=== PATIENT | male | born 1965 | race Caucasian/White ===

== ENCOUNTER 2020-02-28 15:54 | Outpatient (REF) | payer OTHER, SELFPAY | END 2020-02-28 15:55 | disposition home or self-care (01) | LOC: HO.BBR 15:54 | PROVIDERS: Visit Provider Internal Medicine | DX: E83.110 Hereditary hemochromatosis (principal) | CPT/HCPCS: 99195 ==

== ENCOUNTER 2020-05-01 16:02 | Outpatient (REF) | payer OTHER, SELFPAY | END 2020-05-01 16:03 | disposition home or self-care (01) | LOC: HO.BBR 16:02 | PROVIDERS: Visit Provider Internal Medicine | DX: Z13.89 Encounter for screening for other disorder (principal) ==

== ENCOUNTER 2020-05-01 16:45 | Outpatient (REF) | payer SELFPAY ==
[2020-05-01 18:26] LABS: Cholesterol 187 mg/dL
[2020-05-02 08:15] LABS: SARS COV2 IgG Negative (Negative)
== END 2020-05-01 16:46 | disposition home or self-care (01) ==
LOC: HO.LNC 16:45
PROVIDERS: Visit Provider Pathology Anatomic Pathology & Clinical Pathology
DX: Z52.000 Unspecified donor, whole blood (principal); Z20.828 Contact with and (suspected) exposure to other viral communicable diseases
CPT/HCPCS: 82465; 86769

== ENCOUNTER 2020-07-02 13:36 | Emergency (ER) | payer OTHER, SELFPAY ==
--- NOTE | ~2020-07-02 | XR_ITS ---
EXAMINATION: XR CHEST CLINICAL INFORMATION: Dyspnea. Cough. COMPARISON: None TECHNIQUE: Frontal view of the chest was obtained. FINDINGS: The cardiac and mediastinal contours are normal. There is increased attenuation of the right lung base questionable for infiltrate. The left lung is clear. There is no pleural effusion or pneumothorax. Bony structures are unremarkable. XR/XR chest 1V IMPRESSION: Question small infiltrate at the right lung base.
--- NOTE | 2020-07-02 14:05 | ED.SOB ---
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 He is supposed to return to work tomorrow. He reports continuing to have coughing fits and difficulty catching his breath. He hasnt been using his CPAP because of coughing at night. He is bringing up white phlegm. He denies chest pain, abdominal pain, N/V/D. No fevers, no leg pain. MD elicited complaint: shortness of breath Onset (ago): week(s) (2) Context: anxiety Timing: intermittent Severity: moderate Exacerbating factors: exertion and coughing Relieving factors: rest and upright position Associated symptoms: pain with inspiration Treatment prior to arrival: none Related Data Home oxygen amount: none Previous Rx's Medication Instructions Recorded albuterol sulfate 1 inh INHALATION QID PRN #6.7 g 07/02/20 azithromycin [Zithromax Z-Conrad] See Rx Instructions .ROUTE 07/02/20 .COMPLEX #6 tab cefuroxime axetil 500 mg PO BID #14 tab 07/02/20 hydrocodone-homatropine [Hycodan 5 ml PO Q6H PRN #60 ml 07/02/20 (with homatropine)] Allergies Allergy/AdvReac Type Severity Reaction Status Date / Time No Known Allergies Allergy Verified 07/02/20 13:59 Review of Systems Review of Systems: Constitutional: No Fever, No Chills ENT/Mouth: No sore throat, No Rhinorrhea Cardiovascular: No Chest Pain, + SOB, No Orthopnea, No Edema Respiratory: + Cough, + Sputum, No Wheezing, + dyspnea Gastrointestinal: No Nausea, No Vomiting, No Diarrhea, No abdominal Pain Musculoskeletal: No joint pain, No Myalgias Skin: No Skin Lesions, No rash Neuro: No Weakness, No Numbness, No Dizziness, No Headache Psych: + Anxiety/Panic, N+Depression Heme/Lymph: No Lymphadenopathy PMFSH Past Medical History Attestation statement: The following information was validated with the patient. Medical History (Updated 07/02/20 @ 16:14 by LASHELL Johns) Depression Hemochromatosis Hypertension Social History Social History Advance Directives: No Advance Directives Information Provided: No Physical Exam Vital Signs: Vital Signs: Appearance: Alert. Oriented X3. No acute distress. Eyes: Pupils equal, round and reactive to light. ENT: Pharynx normal. Neck: Normal inspection. Neck supple. CVS: Normal heart rate and rhythm. Pulses normal. Respiratory: No respiratory distress. Breath sounds normal. Abdomen: Soft and nontender. +BS x4 Skin: Skin warm and dry. Normal skin color. Normal skin turgor. No rashes. Extremities: No lower extremity edema. Negative Donn's sign. Neuro: Oriented X 3. No motor deficit. No sensory deficit. Course Course Course Narrative: 55 y/o male diagnosed with COVID 10 days ago presenting with continued SOB and cough. He is producing phelgm so there is concern for pneumonia vs bronchitis. Will also need to r/o PE given he is COVID positive. He has no tachycardia or hypoxia. Lungs are clear. CXR and labs are pending. Reevaluation(s) Reevaluation #1: CXR shows ?small RLL infiltrate. No leukocytosis. DDIMER negative, reassuring against PE. Will treat with steroids, abx, anti-tussive and d/c home. Encouraged to f/u with PCP this week. MDM - SOB/Dyspnea Differential Diagnosis Differential diagnosis: Likely pneumonia, asthma with exacerbation, pulmonary embolism and pleural effusion Medical Records Attestation: I reviewed the patient's medical records. Lab Data Attestation: I reviewed the patient's lab results. Result diagrams: 07/02/20 15:39 07/02/20 15:39 Labs: Lab Results 07/02/20 07/02/20 07/02/20 Range/Units 15:39 15:39 15:39 WBC 5.7 (4.8-10.8) X10*3/uL RBC 4.54 L (4.60-5.80) X10*6/uL Hgb 13.3 L (14.0-18.0) g/dl Hct 40.4 L (42-52) % MCV 89.0 (80-98) fL MCH 29.3 (27.0-33.0) pg MCHC 32.9 (31.0-36.0) g/dl RDW 12.3 (11.0-16.0) % Plt Count 210 (160-400) X10*3/uL MPV 9.7 (9.4-12.4) fL Immature Gran % (Auto) 0.2 (0.0-0.4) % Neut % (Auto) 64.4 (45-73) % Lymph % (Auto) 25.6 (20-40) % [place] % (Auto) 8.4 (2-11) % Eos % (Auto) 1.2 (0-4) % Baso % (Auto) 0.2 (0-2) % Lymph # (Auto) 1.5 (1.2-4.9) X10*3/uL [place] # (Auto) 0.5 (0.1-1.2) X10*3/uL Eos # (Auto) 0.1 (0.0-0.4) X10*3/uL Baso # (Auto) 0.0 (0.0-0.2) X10*3/uL Abs Immat Gran (auto) 0.01 (0.00-0.03) X10*3/uL Absolute Neuts (auto) 3.7 (2.0-8.3) X10*3/uL Absolute Nucleated RBC 0.000 (0.0-0.012) X10*3/uL Nucleated RBC % (auto) 0.0 (0.0-0.2) /100WBC D-Dimer < 200 NG/ML Hold Blue Top SEE NOTE Sodium 138 (135-145) mmol/L Potassium 4.5 (3.3-5.1) mmol/L Chloride 103 (96-108) mmol/L Carbon Dioxide 29 (22-29) mmol/L Anion Gap 11 L (12-20) BUN 14 (9-16) mg/dL Creatinine 0.93 (0.5-1.4) mg/dL Estim Creat Clear Calc TNP Estimated GFR > 60 Random Glucose 95 (60-115) mg/dL Calcium 8.9 (8.4-10.2) mg/dL Critical Care Time Critical Care Time Critical Care Time: No Discharge Plan Discharge Clinical Impression: Pneumonia Qualifiers: Pneumonia type: due to unspecified organism Laterality: right Lung location: lower lobe of lung Qualified Code(s): J18.9 - Pneumonia, unspecified organism Patient Disposition: Home, Self-Care Instructions: Community Acquired Pneumonia (ED) Additional Instructions: Your x-ray today showed a small right lower lung pneumonia. Your oxygen levels were normal. Your lab workup was unremarkable. Take the prescribed antibiotics as directed. Use the inhaler and cough medication as needed. Rest and stay hydrated. Follow up with your doctor this week. If you have worsening shortness of breath, call 911 or come back to the ER for further evaluation. Prescriptions: New azithromycin [Zithromax Z-Conrad] 250 mg tablet See Rx Instructions .ROUTE .COMPLEX Qty: 6 RF: 0 cefuroxime axetil 500 mg tablet 500 mg PO BID Qty: 14 RF: 0 albuterol sulfate 90 mcg/actuation HFA aerosol inhaler 1 inh inhalation QID PRN (Reason: shortness of breath or wheezing) Qty: 6.7 RF: 0 hydrocodone-homatropine [Hycodan (with homatropine)] 5-1.5 mg/5 mL syrup 5 ml PO Q6H PRN (Reason: cough) Qty: 60 RF: 0 Stand Alone Forms: Work/School Release
[2020-07-02 15:44] LABS: MANUAL DIFF FLAG NO
[2020-07-02 15:46] LABS: Basophils Percent Auto 0.2 % (0-2); Eosinophils Absolute Auto 0.1 X10*3/uL (0.0-0.4); Eosinophils Percent Auto 1.2 % (0-4); Hematocrit 40.4 % (42-52); Hemoglobin 13.3 g/dl (14.0-18.0); Imm Gran Abs Auto 0.01 X10*3/uL (0.00-0.03); Imm Gran Pct Auto 0.2 % (0.0-0.4); Lymphocytes Absolute Auto 1.5 X10*3/uL (1.2-4.9); Lymphocytes Percent Auto 25.6 % (20-40); Mean Corpuscular HGB Conc 32.9 g/dl (31.0-36.0); Mean Corpuscular Hemoglobin 29.3 pg (27.0-33.0); Mean Platelet Volume 9.7 fL (9.4-12.4); Monocytes Absolute Auto 0.5 X10*3/uL (0.1-1.2); Monocytes Percent Auto 8.4 % (2-11); Neutrophils Absolute Auto 3.7 X10*3/uL (2.0-8.3); Neutrophils Percent Auto 64.4 % (45-73); Platelet Count 210 X10*3/uL (160-400); Red Blood Count 4.54 X10*6/uL (4.60-5.80); Red Cell Distribution Width 12.3 % (11.0-16.0); White Blood Count 5.7 X10*3/uL (4.8-10.8)
[2020-07-02 15:54] LABS: D Dimer < 200 NG/ML
[2020-07-02 16:12] LABS: Anion Gap 11 (12-20); Blood Urea Nitrogen 14 mg/dL (9-16); Calcium 8.9 mg/dL (8.4-10.2); Carbon Dioxide 29 mmol/L (22-29); Chloride 103 mmol/L (96-108); Estimated Glomerular Filt Rate > 60; Glucose Random 95 mg/dL (60-115); Potassium 4.5 mmol/L (3.3-5.1); Sodium 138 mmol/L (135-145)
[2020-07-02] MEDS: methylPREDNISolone acetate 80 MG VIAL 60 MG IM (17:53)
== END 2020-07-02 18:00 | disposition home or self-care (01) ==
PROVIDERS: Physician Assistant; Emergency Provider Emergency Medicine; PCP Internal Medicine
DX: J16.8 Pneumonia due to other specified infectious organisms (principal); Z86.16 Personal history of COVID-19; I10 Essential (primary) hypertension
CPT/HCPCS: 36415; 71045; 80048; 85025; 85379; 99282; 99283; J1040

== ENCOUNTER 2020-08-09 12:20 | Outpatient (REF) | payer OTHER, SELFPAY ==
[2020-08-09 13:03] LABS: Iron 118 mcg/dL (45-160); Percent Iron Saturation 52 % (15-50); Total Iron Binding Capacity 226 mcg/dL (228-428); Unsaturated Iron Binding 108 ug/dL
[2020-08-09 13:23] LABS: Ferritin 10 ng/mL (20-250)
== END 2020-08-09 12:21 | disposition home or self-care (01) ==
LOC: HO.BBR 12:20
PROVIDERS: Visit Provider Internal Medicine
DX: E83.110 Hereditary hemochromatosis (principal)
CPT/HCPCS: 36415; 82728; 83540

== ENCOUNTER 2020-10-11 15:33 | Outpatient (REF) | payer OTHER, SELFPAY | END 2020-10-11 15:34 | disposition home or self-care (01) | LOC: HO.BBR 15:33 | PROVIDERS: Visit Provider Internal Medicine | DX: Z13.89 Encounter for screening for other disorder (principal) ==

== ENCOUNTER 2021-03-15 06:18 | Outpatient (REF) | payer OTHER, SELFPAY ==
--- NOTE | ~2021-03-15 | US_ITS ---
EXAMINATION: US ABDOMEN COMPLETE CLINICAL INFORMATION: Hereditary hemachromatosis. COMPARISON: Ultrasound abdomen 12/23/2019. TECHNIQUE: Real-time imaging of the abdominal viscera. FINDINGS: PANCREAS: Normal. ABDOMINAL AORTA: The proximal, mid, and distal segments are normal in caliber. INFERIOR VENA CAVA: Visualized portions are normal. LIVER: The liver is normal in size. The liver contour is normal. Liver echotexture is increased. There are hypoechoic areas adjacent to the gallbladder which are characteristic of fatty infiltration. No other focal hepatic lesion. There is no intrahepatic biliary duct dilatation seen. GALLBLADDER: The gallbladder is normal in size. There is a small echogenic density adjacent to the gallbladder wall does not move or shadow suggestive of a small polyp. This measures 2 mm. The gallbladder is otherwise unremarkable. COMMON BILE DUCT: Normal in caliber measuring 0.2 cm in diameter. RIGHT KIDNEY: Normal. No hydronephrosis. No renal calculi or focal parenchymal lesions. The kidney measures 12.0 cm in maximum dimension. LEFT KIDNEY: Normal. No hydronephrosis. No renal calculi or focal parenchymal lesions. The kidney measures 11.9 cm in maximum dimension. SPLEEN: Normal. The spleen measures 10.8 cm in maximum dimension. FREE FLUID: None. US/US abdomen complete IMPRESSION: Echogenic liver. No focal liver lesion or evidence of cirrhosis. Probable small gallbladder wall polyp.
[2021-03-15 11:51] LABS: Alanine Aminotransferase 16 U/L (0-40); Albumin Level 4.1 g/dL (3.5-5.0); Alkaline Phosphatase 88 U/L (39-117); Aspartate Amino Transferase 24 U/L (5-37); Bilirubin Direct 0.2 mg/dL (0.0-0.5); Bilirubin Total 0.5 mg/dL (0.0-1.0); Total Protein 6.7 g/dL (6.5-8.0)
[2021-03-18 14:51] LABS: Alpha Fetoprotein 0.9 ng/mL (<6.1)
== END 2021-03-15 06:19 | disposition home or self-care (01) ==
LOC: HO.HMGCX 06:18
PROVIDERS: Visit Provider Internal Medicine
DX: E83.110 Hereditary hemochromatosis (principal)
CPT/HCPCS: 36415; 76700; 80076; 82105

== ENCOUNTER 2022-07-01 10:53 | Outpatient (REF) | payer OTHER, SELFPAY ==
[2022-07-01 11:06] LABS: MANUAL DIFF FLAG NO
[2022-07-01 11:35] LABS: Basophils Percent Auto 0.6 % (0-2); Eosinophils Absolute Auto 0.1 X10*3/uL (0.0-0.4); Eosinophils Percent Auto 1.9 % (0-4); Hematocrit 45.3 % (42.0-52.0); Hemoglobin 15.7 g/dl (14.0-18.0); Imm Gran Abs Auto 0.03 X10*3/uL (0.00-0.03); Imm Gran Pct Auto 0.5 % (0.0-0.4); Lymphocytes Absolute Auto 1.9 X10*3/uL (1.2-4.9); Lymphocytes Percent Auto 30.5 % (20-40); Mean Corpuscular HGB Conc 34.7 g/dl (31.0-36.0); Mean Corpuscular Volume 92.3 fL (80.0-98.0); Monocytes Absolute Auto 0.6 X10*3/uL (0.1-1.2); Monocytes Percent Auto 9.7 % (2-11); Neutrophils Absolute Auto 3.6 x10*3/uL (2.0-8.3); Neutrophils Percent Auto 56.8 % (45-73); Platelet Count 251 X10*3/uL (160-400); Red Blood Count 4.91 X10*6/uL (4.60-5.80); Red Cell Distribution Width 11.9 % (11.0-16.0); White Blood Count 6.3 X10*3/uL (4.8-10.8)
[2022-07-01 12:07] LABS: Alanine Aminotransferase 19 U/L (0-40); Albumin Level 4.2 g/dL (3.5-5.0); Alkaline Phosphatase 92 U/L (39-117); Aspartate Amino Transferase 19 U/L (5-37); Bilirubin Direct 0.2 mg/dL (0.0-0.5); Bilirubin Total 0.5 mg/dL (0.0-1.0); Iron 142 mcg/dL (45-160); Percent Iron Saturation 68 % (15-50); Total Iron Binding Capacity 208 mcg/dL (228-428); Total Protein 6.8 g/dL (6.5-8.0); Unsaturated Iron Binding 66 ug/dL
[2022-07-01 12:26] LABS: Ferritin 58 ng/mL (20-250); T4 Thyroxine 6.9 ug/dL (4.5-12.0); Thyroid Stimulating Hormone 0.76 uIU/mL (0.32-4.0)
[2022-07-02 13:53] LABS: Alpha Fetoprotein 1.4 ng/mL (<6.1)
== END 2022-07-01 10:54 | disposition home or self-care (01) ==
LOC: HO.LAB 10:53
PROVIDERS: PCP Family Medicine; Visit Provider Internal Medicine
DX: E83.110 Hereditary hemochromatosis (principal); R53.83 Other fatigue
CPT/HCPCS: 36415; 80076; 82105; 82728; 83540; 84436; 84443; 85025; 85610

== ENCOUNTER 2022-07-22 09:20 | Outpatient (REF) | payer OTHER, SELFPAY ==
--- NOTE | ~2022-07-22 | US_ITS ---
EXAMINATION: US COMPLETE ABDOMEN WITH LIVER ELASTOGRAPHY CLINICAL INFORMATION: Hemochromatosis. COMPARISON: Abdominal ultrasound dated 03/15/2021. TECHNIQUE: Real-time imaging of the abdominal viscera. Noninvasive ultrasound liver fibrosis assessment is performed using Lynda ElastPQ point quantification shear wave elastography (2D-SWE) with a C5-2 MHz transducer. Multiple elastography samples are obtained. FINDINGS: PANCREAS: Normal. The visualized pancreatic head and body are normal in appearance. The remainder of the pancreas is obscured from visualization by the overlying bowel gas. ABDOMINAL AORTA: The proximal, middle, and distal aortic segments are normal in caliber. INFERIOR VENA CAVA: Visualized portions are normal. LIVER: Normal. The liver demonstrates normal size, contour and echogenicity. No focal lesion or intrahepatic biliary duct dilatation. The right lobe measures 16.0 cm in length. The left lobe measures 10.1 cm in length. Portal flow is towards the liver (hepatopetal). Shear wave liver elastography median stiffness is 1.61 m/s (reference: normal median stiffness is 1.3 m/s or less). IQR/median stiffness to assess sampling precision is 0.24 (reference: good quality data set is IQR/median stiffness of 0.15 or less). GALLBLADDER: Normal. The gallbladder is physiologically distended without evidence of stones, sludge, polyps, wall thickening or pericholecystic fluid. COMMON BILE DUCT: Normal in caliber measuring 0.5 cm in diameter. RIGHT KIDNEY: Normal. No hydronephrosis. No renal calculi or focal parenchymal lesions. The kidney measures 12.1 cm in maximum dimension. LEFT KIDNEY: Normal. No hydronephrosis. No renal calculi or focal parenchymal lesions. The kidney measures 12.3 cm in maximum dimension. SPLEEN: Normal. The spleen measures 9.1 cm in maximum dimension. FREE FLUID: None. US/US abdomen comp w elastography IMPRESSION: 1. There is generalized increase in hepatic echotexture, consistent with fatty infiltration or hepatocellular disease. Please correlate clinically. No focal hepatic mass or intrahepatic biliary dilatation is seen. 2. Liver elastography: Although measurements appear to rule out compensated advanced chronic liver disease, there is statistical variability of the sampling which decreases accuracy. 3. Additionally technically limited ultrasound examination of the pancreas and abdominal great vessels. REFERENCE: Society of Radiologists in Ultrasound Liver Stiffness Thresholds (2020): LIVER STIFFNESS THRESHOLDS: *Liver Stiffness equal or less than 1.3 m/s: High probability of being normal. *Liver Stiffness less than 1.7 m/s: In the absence of other known clinical signs, rules out compensated advanced chronic liver disease. *Liver Stiffness 1.7-2.1 m/s: Suggestive of compensated advanced chronic liver disease but need further test for confirmation. *Liver Stiffness over 2.1 m/s: Rules in compensated advanced chronic liver disease. *Liver Stiffness over 2.4 m/s: Suggestive of clinically significant portal hypertension. QUALITY OF DATA SET: *IQR/Median value equal or less than 0.15 implies a quality data set. *IQR/Median value over 0.15 implies a poor quality data set. SIGNIFICANT CHANGE FROM PRIOR EXAM: Significant change if liver stiffness measurement is 10% or greater from prior exam. OTHER CONSIDERATIONS: The stage of liver fibrosis may be overestimated in the setting of acute hepatitis, liver inflammation, elevated liver function tests, hepatic vascular congestion, obstructive cholestasis, non-fasting state, and infiltrative diseases such as amyloidosis and lymphoma. In some patients with NAFLD, the liver stiffness thresholds for compensated advanced chronic liver disease may be lower. In causes other than viral hepatitis and NAFLD, liver stiffness thresholds are not well established.
== END 2022-07-22 09:21 | disposition home or self-care (01) ==
LOC: HO.US 09:20
PROVIDERS: PCP Family Medicine; Visit Provider Internal Medicine
DX: E83.110 Hereditary hemochromatosis (principal)
CPT/HCPCS: 76705; 76981

== ENCOUNTER 2022-08-04 13:53 | Outpatient (REF) | payer OTHER, SELFPAY | END 2022-08-04 13:54 | disposition home or self-care (01) | LOC: HO.BBR 13:53 | PROVIDERS: Visit Provider Internal Medicine | DX: Z13.89 Encounter for screening for other disorder (principal) ==

== ENCOUNTER 2022-08-29 08:57 | Day surgery (SDC) | payer OTHER, SELFPAY ==
--- NOTE | 2022-08-28 09:32 | P.CONAN_ITS ---
Documented by User: Eliz Cates NP 08/28/22 09:36 HPI - Anesthesia Eval Consult details Narrative: 57yo M for Colonoscopy PMFSH Active Problems Active Problems: All Active Problems (Updated 06/13/21 @ 14:14 by Elizabeth Torrez) Depression (Acute) Hypertension (Acute) Hemochromatosis (Acute) Past Medical History Medical History (Updated 08/28/22 @ 10:29 by Tiffanie Boston) Asthma BPH (benign prostatic hyperplasia) Carpal tunnel syndrome, bilateral Depression Hemochromatosis Hypertension Kidney stones LISSETH (obstructive sleep apnea) Pneumonia due to COVID-19 virus Surgical History Surgical History (Updated 08/28/22 @ 10:29 by Tiffanie Boston) History of colonoscopy History of nasal surgery Social History Social History (System 06/13/21 @ 14:14 by Elizabeth Torrez) Patient Tobacco Use Status: Never used Tobacco Are you DNR?: No Advance Directives: No Advance Directives Information Provided: Yes Meds Allergies Allergy/AdvReac Type Severity Reaction Status Date / Time No Known Allergies Allergy Verified 06/13/21 14:14 Home Medications Medication Instructions Recorded Confirmed Last Taken Type bupropion HCl 150 mg tablet,12 hr 150 mg PO BID 08/28/22 08/28/22 Unknown History sustained-release fluticasone 100 mcg-salmeterol 50 inhalation 08/28/22 Unknown History mcg/dose blistr powdr for inhalation (Ranulfo Anderson) lisinopril 20 mg tablet 20 mg PO DAILY 08/28/22 08/28/22 Unknown History montelukast 10 mg tablet 10 mg PO DAILY 08/28/22 08/28/22 Unknown History tamsulosin 0.4 mg capsule 0.4 mg PO BEDTIME 08/28/22 08/28/22 Unknown History valacyclovir 1 gram tablet 1,000 mg PO DAILY 08/28/22 08/28/22 Unknown History Exam Exam Date and Time: August 28, 2022 0932 Assessment and Plan Assessment Anesthesia Assessment: Chart Reviewed Documented by User: Nkechi Todd MD 08/29/22 09:37 [facility] Past Medical History Medical History (Updated 08/28/22 @ 10:29 by Tiffanie Boston) Asthma BPH (benign prostatic hyperplasia) Carpal tunnel syndrome, bilateral Depression Hemochromatosis Hypertension Kidney stones LISSETH (obstructive sleep apnea) Pneumonia due to COVID-19 virus Family History Family history of problems with anesthesia: No Surgical History Surgical History (Updated 08/28/22 @ 10:29 by Tiffanie Boston) History of colonoscopy History of nasal surgery History of Problems with Anesthesia: No Social History Social History (System 06/13/21 @ 14:14 by Elizabeth Torrez) Patient Tobacco Use Status: Never used Tobacco Are you DNR?: No Advance Directives: No Advance Directives Information Provided: Yes Meds Allergies Allergy/AdvReac Type Severity Reaction Status Date / Time No Known Allergies Allergy Verified 06/13/21 14:14 Home Medications Medication Instructions Recorded Confirmed Last Taken Type bupropion HCl 150 mg tablet,12 hr 150 mg PO BID 08/28/22 08/28/22 Unknown History sustained-release fluticasone 100 mcg-salmeterol 50 inhalation 08/28/22 Unknown History mcg/dose blistr powdr for inhalation (Ranulfo Inhub) lisinopril 20 mg tablet 20 mg PO DAILY 08/28/22 08/28/22 Unknown History montelukast 10 mg tablet 10 mg PO DAILY 08/28/22 08/28/22 Unknown History tamsulosin 0.4 mg capsule 0.4 mg PO BEDTIME 08/28/22 08/28/22 Unknown History valacyclovir 1 gram tablet 1,000 mg PO DAILY 08/28/22 08/28/22 Unknown History Exam Airway Mallampati Class: II TM Dist: >3cm Neck ROM: Full Heart: rrr Lungs: cta Assessment and Plan Final Anesthetic Review Family History of Problems with Anesthesia: No History of Problems with Anesthesia: No NPO: Yes ASA Class: III Final Preanesthetic Review: No Changes in Pt Med Stat, Meds/Allgs Chart Reviewed and Consent Obtained/Reviewed Patient Risk: Intermediate Procedure Risk: Intermediate Anesthetic Plan Anesthetic Plan: MAC: Disposition: Standard PACU
[2022-08-29 06:11] VITALS: BMI 30.8
[2022-08-29 08:58] VITALS: BP 139/77; PULSE 81; RESP 20; TEMP 36.3; O2SAT 98
[2022-08-29] MEDS: Lactated Ringers 1,000 ML 100 ML IVCONT (09:13)
[2022-08-29] MEDS: Sodium Phosphate,Mono-Dibasic 133 ML ENEMA PR (09:14)
--- NOTE | 2022-08-29 09:20 | PC.NURSE ---
results from fleets yellow liquid
[2022-08-29 10:30] VITALS: BP 119/65; PULSE 68; RESP 16; TEMP 36.9; O2SAT 97
--- NOTE | 2022-08-29 10:37 | PM.OP ---
Brief Operative Note Date of Service: 08/29/22 Pre-op diagnosis: Screening Post-op diagnosis: other (Rectal polyps) Procedure: Colonoscopy to the cecum and TI with biopsy and removal of polyps Surgeon: Kemal Finn Anesthesia: MAC Was an Straight Ruling Machine Operator used for this Procedure?: No Estimated blood loss (mL): 2.0 Pathology: other (A. Rectal polyps) Condition: stable Disposition: PACU
[2022-08-29 10:45] VITALS: BP 153/87; PULSE 63; RESP 18; TEMP 36.7; O2SAT 97
--- NOTE | 2022-08-29 11:55 | OP_ITS ---
DATE OF SERVICE: 08/29/2022 SURGEON: Kemal Finn MD INDICATIONS: The patient presents for evaluation of personal history of tubular adenoma of the colon and colorectal cancer screening. Full consent has been obtained from him for this, including risks of bleeding and perforation. PREOPERATIVE DIAGNOSIS: POSTOPERATIVE DIAGNOSIS: PROCEDURE PERFORMED: Colonoscopy to the cecum and terminal ilium with biopsy and removal of polyps. ESTIMATED BLOOD LOSS: COMPLICATIONS: ANESTHESIA: Monitored anesthesia care. ASSISTANTS: SPECIMENS: PREOPERATIVE DIAGNOSES: Colorectal cancer screening and personal history of tubular adenoma of the colon. POSTOPERATIVE DIAGNOSES: Colorectal cancer screening and personal history of tubular adenoma of the colon, rectal polyps, diverticulosis, and internal hemorrhoids. DESCRIPTION OF PROCEDURE: The patient was placed in the left lateral decubitus position. The digital rectal exam revealed no abnormalities. The Olympus video pediatric colonoscope was entered into the rectum and advanced easily to the cecum. once in the cecum, I did identify a normal-appearing cecal pouch with appendiceal orifice and a normal-appearing ileocecal valve. The terminal ilium was cannulated and appeared normal. The scope was withdrawn back in the colon. The entire cecum and ileocecal valve appeared normal. The scope was slowly withdrawn assessing all mucosal surface carefully. Preparation was excellent. There was a mild amount of sigmoid diverticulosis. I did not visualize any sign of colitis nor angiodysplasia. In the rectum, were 2 flat less than 5 mm polyps, which were each biopsied and removed with a cold biopsy forceps. The scope was retroflexed visualizing small internal hemorrhoids as well. The scope was straightened and withdrawn from the patient. He tolerated the procedure well and was returned to the recovery area in stable condition. IMPRESSION: 1. Rectal polyp. 2. Mild diverticulosis. 3. Small internal hemorrhoids. PLAN: The results of the biopsies will be checked. I would recommend a repeat colonoscopy in 5 years. He was advised to see me in 1 year for followup visit in regard to the underlying hemochromatosis and was advised to continue his current phlebotomy schedule. This has been discussed with his . MD LISA Pepe/KALEN / [id number]
== END 2022-08-29 11:10 | disposition home or self-care (01) ==
PROVIDERS: PCP Family Medicine; Visit Provider Internal Medicine
PROC: 0DJD8ZZ Inspection of Lower Intestinal Tract, Via Natural or Artificial Opening Endoscopic (ICD-10-PCS; CPT 45378; principal; 2022-08-29 09:30)
DX: Z12.11 Encounter for screening for malignant neoplasm of colon (principal); Z86.010 Personal history of colon polyps; K62.1 Rectal polyp; K57.30 Diverticulosis of large intestine without perforation or abscess without bleeding; K64.8 Other hemorrhoids; I10 Essential (primary) hypertension; G47.33 Obstructive sleep apnea (adult) (pediatric); E83.110 Hereditary hemochromatosis; N40.0 Benign prostatic hyperplasia without lower urinary tract symptoms; J45.909 Unspecified asthma, uncomplicated; R53.83 Other fatigue; Z79.51 Long term (current) use of inhaled steroids; Z79.899 Other long term (current) drug therapy; Z99.89 Dependence on other enabling machines and devices; Z86.16 Personal history of COVID-19
CPT/HCPCS: 45380; 88305

== ENCOUNTER 2022-10-06 15:02 | Outpatient (REF) | payer OTHER, SELFPAY | END 2022-10-06 15:03 | disposition home or self-care (01) | LOC: HO.BBR 15:02 | PROVIDERS: PCP Physician Assistant; Visit Provider Internal Medicine | DX: Z13.89 Encounter for screening for other disorder (principal) ==

== ENCOUNTER 2022-12-08 15:07 | Outpatient (REF) | payer OTHER, SELFPAY | END 2022-12-08 15:08 | disposition home or self-care (01) | LOC: HO.BBR 15:07 | PROVIDERS: PCP Physician Assistant; Visit Provider Internal Medicine | DX: Z13.89 Encounter for screening for other disorder (principal) ==

== ENCOUNTER 2023-02-09 14:38 | Outpatient (REF) | payer OTHER, SELFPAY ==
[2023-02-09 16:11] LABS: Iron 74 mcg/dL (45-160); Percent Iron Saturation 36 % (15-50); Total Iron Binding Capacity 208 mcg/dL (228-428); Unsaturated Iron Binding 134 ug/dL
[2023-02-09 16:23] LABS: Ferritin 16 ng/mL (20-250)
== END 2023-02-09 14:39 | disposition home or self-care (01) ==
LOC: HO.BBR 14:38
PROVIDERS: PCP Physician Assistant; Visit Provider Internal Medicine
DX: E83.110 Hereditary hemochromatosis (principal)
CPT/HCPCS: 36415; 82728; 83540

== ENCOUNTER 2023-04-16 14:53 | Outpatient (REF) | payer OTHER, SELFPAY | END 2023-04-16 14:54 | disposition home or self-care (01) | LOC: HO.BBR 14:53 | PROVIDERS: PCP Physician Assistant; Visit Provider Internal Medicine | DX: Z13.89 Encounter for screening for other disorder (principal) ==

== ENCOUNTER 2023-06-16 14:54 | Outpatient (AMB) | payer OTHER, SELFPAY ==
[2023-06-16 14:57] VITALS: BMI 32.1
--- NOTE | 2023-06-16 14:57 | MHC.OFFVIS ---
Intake Vital Signs 06/16/23 14:57 Height 5 ft 7.5 in Weight 208 lb BMI 32.1 Intake Visit Reasons: Bull Bucker- B/L cts Intake Note: Thai 58 yr old male presents today for a new patient evaluation for his bilateral CTS. States his left is worse. Started about 3-4 years ago. Patient states his symptoms increases at night time. Denies injection. States he wears his braces at night with very little help. EMG done. Hx of Hemochromatosis. Allergies No Known Allergies Allergy (Verified 06/16/23 14:59) HPI Bull Bucker- B/L cts HPI Details Thai is a 58 year old right hand dominant man who presents with cmplaints of bilateral hand numbness. He complains of numbness in the thumb, index, and middle fingers bilaterally, L>R. His symptoms are intermittent, but daily, and worse at night. They have been present for ~4 years now. He wears bilateral wrist braces at night, which he says gives little to no relief, and denies any prior injections. He says he wakes up at night and he feels his fingers are numb and swollen, and he can't make a fist. He has a hx of Hemachromatosis. He works primarily in outdoor property maintenance, including gardening, cutting grass, and removing snow. [facility] Medical History (Updated 06/16/23 @ 15:10 by Arthur Sheldon) Kidney stones Carpal tunnel syndrome, bilateral Pneumonia due to COVID-19 virus BPH (benign prostatic hyperplasia) Asthma LISSETH (obstructive sleep apnea) Hemochromatosis Hypertension Depression Surgical History (Updated 08/28/22 @ 10:29 by Tiffanie Boston) History of colonoscopy History of nasal surgery Social History (Updated 06/16/23 @ 15:00 by Fartun Carter [facility]) Patient Tobacco Use Status: Never used Tobacco Current occupation: rt hand/ [employer] Review of Systems Const All systems reviewed & are unremarkable except as noted in HPI and below Physical Exam Vital Signs: BMI result Body Mass Index 32.1 Const General: cooperative, healthy appearing and no acute distress Orientation/consciousness: patient oriented x3 HEENT Head: Yes normocephalic and Yes atraumatic Eyes EOM: EOMs intact bilaterally Resp Effort & Inspection: normal respiratory effort and able to speak in complete sentences Cardio Jugular venous distension: no JVD Skin General skin exam: turgor normal Rashes: no rashes Neuro General: patient oriented x3 Extrem Other: Evaluation of Bilateral Upper Extremity: The patient is alert, oriented, and in no acute distress Neuro: Median, Ulnar, Radial nerves motor and sensory intact and sensation is normal to the tips of all digits today in clinic No thenar or intrinsic wasting Good APB muscle belly firing and good finger cross Vascular: Cap refill brisk ROM: He can make a fist and extend all his digits No locking or catching Skin: No lacerations or abrasions. General: No Ecchymosis. No Erythema or evidence of infection. Nerve Conduction Study: Bilateral carpal tunnel syndrome No evidence of ulnar neuropathy or cervical radiculopathy Dr. Forrest 06/25/22 Psych Appearance: grossly normal Affect: normal affect Attitude: cooperative Assessment & Plan Assessment & Plan (1) Hemochromatosis: Code(s): E83.119 - Hemochromatosis, unspecified (2) Carpal tunnel syndrome, bilateral: Code(s): G56.03 - Carpal tunnel syndrome, bilateral upper limbs Plan Assessment & Plan: 1. Left carpal tunnel syndrome, Symptoms intermittent, but daily, worse at night I educated him about this condition I discussed operative and non-operative treatment options The patient would like to proceed with surgery, beginning with the left side The risks and benefits of operative treatment were discussed with the patient and the patient wishes to proceed with surgery. These risks include, but are not limited to risk of damage to blood vessels, nerves, tendons, infection, recurrence, incomplete relief of preoperative symptoms, persistent pain, possible need for further surgery and the risks associated with regional blocks and anesthesia. The plan is to take the patient to the operating room sometime in the next few weeks for the following procedures: 1. Left carpal tunnel release, under local All of the preoperative paperwork including the consent was reviewed today. All the patient's questions were answered. The patient understands that they will be contacted by our cardiovascular invasive specialist soon to schedule this procedure He denies Diabetes, blood thinners, asthma, heart, lung, kidney issues 2. Right carpal tunnel syndrome, Symptoms intermittent, but daily, worse at night He will follow up to discuss treatment for his right wrist when he has recovered. Scribed for Ama Tatum MD by Arthur Sheldon medical referral coordinator, on 06/16/23 at 3:10 PM, EST. Coding Level of Care Code New Pt Level 4 (85764) Diagnoses Hemochromatosis E83.119 Carpal tunnel syndrome, bilateral G56.03
== END 2023-06-16 15:34 | disposition home or self-care (01) ==
PROVIDERS: PCP Physician Assistant; Visit Provider Orthopaedic Surgery
DX: G56.03 Carpal tunnel syndrome, bilateral upper limbs (principal); E83.119 Hemochromatosis, unspecified
CPT/HCPCS: 99204

== ENCOUNTER → 2023-06-16 14:54 | Outpatient (BNVA) | payer OTHER, SELFPAY | PROVIDERS: PCP Physician Assistant; Visit Provider Orthopaedic Surgery ==

== ENCOUNTER 2023-06-19 14:51 | Outpatient (REF) | payer OTHER, SELFPAY | END 2023-06-19 14:52 | disposition home or self-care (01) | LOC: HO.BBR 14:51 | PROVIDERS: PCP Physician Assistant; Visit Provider Internal Medicine | DX: Z13.89 Encounter for screening for other disorder (principal) ==

== ENCOUNTER 2023-08-19 14:18 | Outpatient (REF) | payer OTHER, SELFPAY | END 2023-08-19 14:19 | disposition home or self-care (01) | LOC: HO.BBR 14:18 | PROVIDERS: Visit Provider Internal Medicine | DX: Z13.89 Encounter for screening for other disorder (principal) | CPT/HCPCS: 36415; 82728; 83540 ==

== ENCOUNTER 2023-08-20 09:36 | Day surgery (SDC) | payer OTHER, SELFPAY ==
[2023-08-20 09:47] VITALS: BMI 30.7
--- NOTE | 2023-08-20 10:57 | MHC.SHP ---
Pre-Procedural Eval Section A - 24 Hr Update-Section A only Date of Service: 08/20/23 The patient is an INPATIENT: No Changes since office visit: No Cold of Flu in the past 2 weeks, No New Medical Problems, No Changes in Medication and No Patient answered all questions The patient has been examined within 24 hours of the surgical procedure. The History & Physical has been completed within 30 days and I have reviewed it.: Yes Section B - Complete if H&P > 30 days Chief Complaint: Carpal tunnel syndrome, left upper limb Allergies: Allergies Allergy/AdvReac Type Severity Reaction Status Date / Time No Known Allergies Allergy Verified 08/20/23 09:48 Exam Exam Comment: Left carpal tunnel syndrome Plan Diagnosis/Plan: Unchanged I have reviewed the history and physical and performed a pertinent physical examination on my patient. No changes have occurred unless specified. Time Spent With Patient Time: Total time managing care of this patient today ____ minutes.
--- NOTE | 2023-08-20 10:58 | W.PM.OPN ---
Operative Note Operative Note Date of Service: 08/20/23 Narrative: Preop diagnosis: 1. Left Carpal tunnel syndrome Postop diagnosis: same Procedure: 1. Left Carpal tunnel release Surgeon: Ama Tatum MD Anesthesia: local block using 1% lidocaine with epinephrine Findings: Thickened transverse carpal ligament. EBL: Less than 5 mL Specimens: None Complications: None Disposition: Brought to recovery room in stable condition Plan: Follow-up for 10-14 days for wound check and suture removal Indications: The patient is 58 years old, with left carpal tunnel syndrome that has been unresponsive to nonoperative management. The risks and benefits of operative treatment including but not limited to risk of damage to blood vessels, nerves, tendons, infection, persistent pain, persistent symptoms, or possible need for additional surgery were discussed with the patient and the patient wishes to proceed with surgery. Procedure: Once consent was obtained a local block was performed using a combination of 1% lidocaine with epinephrine. The patient was then brought back to the operating suite and placed on the operative table in supine position. The left upper extremity was prepped and draped in a standard surgical fashion. Once assured that we had a good block, a 2.0 cm longitudinal incision was made centered over the carpal tunnel. The incision was made through the skin to the subcutaneous tissues using a #15 blade. Dissection was made down to the level of the transverse carpal ligament with care being taken to protect the palmar cutaneous nerve. Once the transverse carpal ligament was clearly visualized, a longitudinal incision was made in the transverse carpal ligament 1st using a #15 blade, then using tenotomy scissors under direct visualization. Care was taken to look for and protect the motor branch of the median nerve when seen in this area. Once satisfied with our carpal tunnel release the wound was copiously irrigated with normal saline and hemostasis was obtained with a brief period of local pressure. The skin edges were reapproximated with some 5.0 nylon suture material and a sterile dressing was applied. The patient appears to have tolerated the procedure well and with no complications. All digits were well vascularized at the conclusion of the case.
[2023-08-20 12:55] VITALS: BP 138/67; PULSE 69; RESP 16; O2SAT 97
== END 2023-08-20 12:56 | disposition home or self-care (01) ==
PROVIDERS: PCP Family Medicine; Visit Provider Orthopaedic Surgery
PROC: (CPT 64721; principal; 2023-08-20 10:30)
DX: G56.02 Carpal tunnel syndrome, left upper limb (principal); R20.0 Anesthesia of skin; I10 Essential (primary) hypertension; E83.119 Hemochromatosis, unspecified; G47.33 Obstructive sleep apnea (adult) (pediatric); J45.909 Unspecified asthma, uncomplicated; F32.A Depression, unspecified; Z87.442 Personal history of urinary calculi; Z86.16 Personal history of COVID-19
CPT/HCPCS: 64721; J0171; J2795

== ENCOUNTER → 2023-08-20 09:36 | Outpatient (BNV) | payer OTHER, SELFPAY | PROVIDERS: PCP Family Medicine; Visit Provider Orthopaedic Surgery | DX: G56.02 Carpal tunnel syndrome, left upper limb (principal) | CPT/HCPCS: 64721 ==

== ENCOUNTER 2023-09-02 09:56 | Outpatient (AMB) | payer OTHER, SELFPAY ==
[2023-09-02 10:10] VITALS: BMI 30.7
--- NOTE | 2023-09-02 10:10 | MHC.OFFVIS ---
Intake Vital Signs 09/02/23 10:10 Height 5 ft 7.5 in Weight 199 lb BMI 30.7 Intake Visit Reasons: PO-Lt CTR 08/20/23 Intake Note: Thai 58 yr old male presents today for his post op visit for his left hand CTR from 08/20/23. Done with Dr. Tatum. States his CTS has improved and is doing well. Sutures removed and steri strips applied. Allergies No Known Allergies Allergy (Verified 09/02/23 10:12) HPI PO-Lt CTR 08/20/23 HPI Details Thai is a 58 year old right hand dominant man who returns S/P left carpal tunnel release, DOS: 08/20/23 He says he is doing well and his sensation has been improving. He feels this is now normal and he has good resolution of his nighttime symptoms He continues to have numbness in his right hand, intermittent throughout the week, worse at night. He notices it was worse while he was working, and got a little better since he has been out of work for the last few weeks. He is concerned that when he goes back to work he is going to go back to having this hurting every night. He has a hx of Hemachromatosis. He works primarily in outdoor property maintenance, including gardening, cutting grass, and removing snow. He says there is no light duty and he has not been working since his surgery. [facility] Medical History (Updated 06/16/23 @ 15:10 by Arthur Sheldon) Kidney stones Carpal tunnel syndrome, bilateral Pneumonia due to COVID-19 virus BPH (benign prostatic hyperplasia) Asthma LISSETH (obstructive sleep apnea) Hemochromatosis Hypertension Depression Surgical History History of colonoscopy History of nasal surgery Social History Patient Tobacco Use Status: Never used Tobacco Current occupation: rt hand/ [employer] Review of Systems Const All systems reviewed & are unremarkable except as noted in HPI and below Physical Exam Vital Signs: BMI result Body Mass Index 30.7 Const General: no acute distress and alert Orientation/consciousness: patient oriented x3 Neuro General: patient oriented x3 Extrem Other: The patient was alert oriented and in no acute distress The incision is healing well with no erythema drainage or evidence of infection. Sutures removed and Steri-Strips applied He can make a fist and extend all his digits Sensation is normal to the tips of all digits Cap refill is brisk Regarding his right hand he has normal sensation as well to the tips of all digits. No intrinsic or thenar wasting. He can make a fist and extend all of the digits of his right hand with no locking or catching Nerve Conduction Study: Bilateral carpal tunnel syndrome No evidence of ulnar neuropathy or cervical radiculopathy Dr. Forrest 06/25/22 Psych Appearance: grossly normal Affect: normal affect Attitude: cooperative Assessment & Plan Assessment & Plan (1) Carpal tunnel syndrome, bilateral: Code(s): G56.03 - Carpal tunnel syndrome, bilateral upper limbs (2) Hemochromatosis: Code(s): E83.119 - Hemochromatosis, unspecified Plan Assessment & Plan: 1. Left carpal tunnel syndrome, S/P release DOS: 08/20/23 Pre-operative symptoms intermittent, but daily, worse at night Now with normal sensation and good resolution of his nighttime symptoms The patient appears to be doing well post-operatively I educated him about the post-operative course I discussed activity modifications, he is to lift nothing heavier than a cellphone for the next two weeks He will perform gentle ROM exercises at home He should avoid any underwater activities for the next 5 days He should gently massage about the incision site to reduce the risk of hypersensitivity He was given a note to return to work on full duty in 3 weeks, as he says his work has no light duty. He can follow up prn 2. Right carpal tunnel syndrome, Symptoms intermittent, but daily, worse at night I educated him about this condition I discussed operative and non-operative treatment options The patient would like to proceed with surgery The risks and benefits of operative treatment were discussed with the patient and the patient wishes to proceed with surgery. These risks include, but are not limited to risk of damage to blood vessels, nerves, tendons, infection, recurrence, incomplete relief of preoperative symptoms, persistent pain, possible need for further surgery and the risks associated with regional blocks and anesthesia. The plan is to take the patient to the operating room sometime in the next few weeks for the following procedures: 1. Right carpal tunnel release, under local All of the preoperative paperwork including the consent was reviewed today. All the patient's questions were answered. The patient understands that they will be contacted by our nursing scheduler soon to schedule this procedure He denies Diabetes, blood thinners, asthma, heart, lung, kidney issues Scribed for Ama Tatum MD by Arthur Sheldon, clinical medical assistant, on 09/02/23 at 10:30 AM EST. Coding Level of Care Code Est Pt Level 4 (96818) Diagnoses Carpal tunnel syndrome, bilateral G56.03 Hemochromatosis E83.119
== END 2023-09-02 10:40 | disposition home or self-care (01) ==
PROVIDERS: PCP Physician Assistant; Visit Provider Orthopaedic Surgery
DX: G56.03 Carpal tunnel syndrome, bilateral upper limbs (principal); E83.119 Hemochromatosis, unspecified
CPT/HCPCS: 99214

== ENCOUNTER → 2023-09-02 09:56 | Outpatient (BNVA) | payer OTHER, SELFPAY | PROVIDERS: PCP Physician Assistant; Visit Provider Orthopaedic Surgery ==

== ENCOUNTER 2023-09-23 08:40 | Outpatient (REF) | payer OTHER, SELFPAY ==
--- NOTE | ~2023-09-23 | US_ITS ---
EXAMINATION: US COMPLETE ABDOMEN WITH LIVER ELASTOGRAPHY CLINICAL INFORMATION: Irregularity erythema, ptosis. COMPARISON: Abdominal ultrasound dated 07/22/2022. TECHNIQUE: Real-time imaging of the abdominal viscera. Noninvasive ultrasound liver fibrosis assessment is performed using Lynda ElastPQ point quantification shear wave elastography (2D-SWE) with a C5-2 MHz transducer. Multiple elastography samples are obtained. FINDINGS: PANCREAS: Largely obscured from visualization by the overlying bowel gas. ABDOMINAL AORTA: The proximal segment is obscured by overlapping bowel gas. The mid and distal aortic segments are normal in caliber. INFERIOR VENA CAVA: Largely obscured by overlapping bowel gas. LIVER: The liver demonstrates normal size, contour and generally increased echogenicity, with pericholecystic sparing. No focal lesion or intrahepatic biliary duct dilatation. The right lobe measures 15.8 cm in length. The left lobe measures 8.8 cm in length. Portal flow is towards the liver (hepatopetal). Shear wave liver elastography median stiffness is 1.58 m/s (reference: normal median stiffness is 1.3 m/s or less). IQR/median stiffness to assess sampling precision is 0.16 (reference: good quality data set is IQR/median stiffness of 0.15 or less). GALLBLADDER: Normal. The gallbladder is physiologically distended without evidence of stones, sludge, polyps, wall thickening or pericholecystic fluid. COMMON BILE DUCT: Normal in caliber measuring 0.2 cm in diameter. RIGHT KIDNEY: Normal. No hydronephrosis. No renal calculi or focal parenchymal lesions. The kidney measures 11.4 cm in maximum dimension. LEFT KIDNEY: At the upper pole, a 7 mm anechoic, simple cyst is seen, for which no imaging follow-up is recommended. No hydronephrosis. No renal calculi or focal parenchymal lesions. The kidney measures 12.3 cm in maximum dimension. SPLEEN: Normal. The spleen measures 9.1 cm in maximum dimension. FREE FLUID: None. US/US abdomen comp w elastography IMPRESSION: 1. There is generalized increase in hepatic echotexture, consistent with fatty infiltration or hepatocellular disease. Please correlate clinically. Characteristic pericholecystic sparing favors fatty infiltration. No focal hepatic mass or intrahepatic biliary dilatation is seen. 2. Liver elastography: Although measurements appear to rule out compensated advanced chronic liver disease, there is statistical variability of the sampling which decreases accuracy. 3. Technically limited ultrasound examination, in particular of the pancreas and abdominal great vessels. REFERENCE: Society of Radiologists in Ultrasound Liver Stiffness Thresholds (2020): LIVER STIFFNESS THRESHOLDS: *Liver Stiffness equal or less than 1.3 m/s: High probability of being normal. *Liver Stiffness less than 1.7 m/s: In the absence of other known clinical signs, rules out compensated advanced chronic liver disease. *Liver Stiffness 1.7-2.1 m/s: Suggestive of compensated advanced chronic liver disease but need further test for confirmation. *Liver Stiffness over 2.1 m/s: Rules in compensated advanced chronic liver disease. *Liver Stiffness over 2.4 m/s: Suggestive of clinically significant portal hypertension. QUALITY OF DATA SET: *IQR/Median value equal or less than 0.15 implies a quality data set. *IQR/Median value over 0.15 implies a poor quality data set. SIGNIFICANT CHANGE FROM PRIOR EXAM: Significant change if liver stiffness measurement is 10% or greater from prior exam. OTHER CONSIDERATIONS: The stage of liver fibrosis may be overestimated in the setting of acute hepatitis, liver inflammation, elevated liver function tests, hepatic vascular congestion, obstructive cholestasis, non-fasting state, and infiltrative diseases such as amyloidosis and lymphoma. In some patients with NAFLD, the liver stiffness thresholds for compensated advanced chronic liver disease may be lower. In causes other than viral hepatitis and NAFLD, liver stiffness thresholds are not well established.
[2023-09-23 09:26] LABS: MANUAL DIFF FLAG NO
[2023-09-23 10:03] LABS: INTERNATIONAL NORM RATIO 0.9 (0.9-1.1); Prothrombin Time 11.1 SEC (11.1-13.3)
[2023-09-23 10:07] LABS: Basophils Absolute Auto 0.1 X10*3/uL (0.0-0.2); Basophils Percent Auto 0.8 % (0-2); Eosinophils Absolute Auto 0.1 X10*3/uL (0.0-0.4); Eosinophils Percent Auto 2.2 % (0-4); Hematocrit 36.6 % (42.0-52.0); Hemoglobin 11.6 g/dl (14.0-18.0); Imm Gran Abs Auto 0.02 X10*3/uL (0.00-0.03); Imm Gran Pct Auto 0.3 % (0.0-0.4); Lymphocytes Absolute Auto 1.7 X10*3/uL (1.2-4.9); Lymphocytes Percent Auto 29.1 % (20-40); Mean Corpuscular HGB Conc 31.7 g/dl (31.0-36.0); Mean Corpuscular Volume 85.3 fL (80.0-98.0); Mean Platelet Volume 9.7 fL (9.4-12.4); Monocytes Absolute Auto 0.5 X10*3/uL (0.1-1.2); Monocytes Percent Auto 7.7 % (2-11); Neutrophils Absolute Auto 3.6 x10*3/uL (2.0-8.3); Neutrophils Percent Auto 59.9 % (45-73); Platelet Count 260 X10*3/uL (160-400); Red Blood Count 4.29 X10*6/uL (4.60-5.80); Red Cell Distribution Width 14.2 % (11.0-16.0)
[2023-09-23 10:33] LABS: Alanine Aminotransferase 11 U/L (0-40); Albumin Level 4.1 g/dL (3.5-5.0); Alkaline Phosphatase 76 U/L (39-117); Aspartate Amino Transferase 16 U/L (5-37); Bilirubin Direct < 0.2 mg/dL (0.0-0.5); Bilirubin Total 0.2 mg/dL (0.0-1.0); Iron 21 mcg/dL (45-160); Percent Iron Saturation 9 % (15-50); Total Iron Binding Capacity 237 mcg/dL (228-428); Total Protein 7.1 g/dL (6.5-8.0); Unsaturated Iron Binding 216 ug/dL
[2023-09-23 10:42] LABS: Ferritin 8 ng/mL (20-250)
[2023-09-24 13:39] LABS: Alpha Fetoprotein 1.1 ng/mL (<6.1)
[2023-10-05 15:39] LABS: FIB-ALT 9 U/L (9-46); FIB-Alpha-2-Macroglobulin 147 mg/dL (106-279); FIB-Apolipoprotein A1 177 mg/dL (94-176); FIB-GGT 23 U/L (3-85); FIB-Haptoglobin 109 mg/dL (43-212); FIB-Total Bilirubin 0.2 mg/dL (0.2-1.2); Liver Fibrosis Score 0.06; Liver Fibrosis Stage F0; Nec Inflam Act Grade A0; Nec Inflam Act Score 0.02
== END 2023-09-23 08:41 | disposition home or self-care (01) ==
LOC: HO.US 08:40
PROVIDERS: PCP Physician Assistant; Visit Provider Internal Medicine
DX: E83.110 Hereditary hemochromatosis (principal)
CPT/HCPCS: 36415; 76700; 76981; 80076; 81596; 82105; 82728; 83540; 85025; 85610

== ENCOUNTER 2023-10-19 14:01 | Outpatient (REF) | payer OTHER, SELFPAY | END 2023-10-19 14:02 | disposition home or self-care (01) | LOC: HO.BBR 14:01 | PROVIDERS: PCP Physician Assistant; Visit Provider Internal Medicine | DX: Z13.89 Encounter for screening for other disorder (principal) ==

== ENCOUNTER 2024-01-13 11:08 | Outpatient (AMB) | payer OTHER, SELFPAY ==
--- NOTE | 2024-01-13 11:10 | MHC.OFFVIS ---
Vital Signs 01/13/24 11:17 Height 5 ft 7.5 in Weight 199 lb BMI 30.7 Intake Visit Reasons: Preop RT CTR 01/25/24 AR Intake Note: Thai is a 58 yo right hand dominant male who presents today preoperatively for right carpal tunnel release scheduled for 01/25/[address] Tatum. Patient states he has no concerns today. Allergies No Known Allergies Allergy (Verified 01/13/24 11:18) HPI HPI Preop RT CTR 01/25/24 AR: Details: Thai is a 58 year old right hand dominant man who returns to discuss his right carpal tunnel syndrome. He continues to have numbness in his right hand, intermittent throughout the week, worse at night. He notices it was worse while he was working, and got a little better since he has been out of work for the last few weeks. He complains of pain in the PIP and MCP joints of his left hand when making a fist or grabbing on object. He says he has done OT in the past and has been performing at-home exercises, with some improvement. He is concerned he is becoming more stiff and is worried he may be developing arthritis. He has a hx of a left carpal tunnel release, DOS: 08/20/23. In regards to his left hand, he says he is doing well and his sensation is now normal. He has a hx of Hemachromatosis. He works primarily in outdoor property maintenance, including gardening, cutting grass, and removing snow. He says there is no light duty and he has not been working since his surgery. [facility] Medical History (Updated 06/16/23 @ 15:10 by Arthur Sheldon) Kidney stones Carpal tunnel syndrome, bilateral Pneumonia due to COVID-19 virus BPH (benign prostatic hyperplasia) Asthma LISSETH (obstructive sleep apnea) Hemochromatosis Hypertension Depression Surgical History History of colonoscopy History of nasal surgery Social History Patient Tobacco Use Status: Never used Tobacco Current occupation: rt hand/ [employer] Physical Exam Vital Signs: BMI result Body Mass Index 30.7 Extrem Other: Evaluation of Right Upper Extremity: The patient is alert, oriented, and in no acute distress Neuro: Median, Ulnar, Radial nerves motor and sensory intact and sensation is normal to the tips of all digits today in clinic No thenar or intrinsic wasting Good APB muscle belly firing and good finger cross Vascular: Cap refill brisk ROM: He can make a fist and extend all his digits No locking or catching Nerve Conduction Study: Bilateral carpal tunnel syndrome No evidence of ulnar neuropathy or cervical radiculopathy Dr. Forrest 06/25/22 Assessment & Plan Assessment & Plan (1) Carpal tunnel syndrome, bilateral: Code(s): G56.03 - Carpal tunnel syndrome, bilateral upper limbs Category: Medical (2) Hemochromatosis: Code(s): E83.119 - Hemochromatosis, unspecified Category: Medical Plan Assessment & Plan: 1. Right carpal tunnel syndrome, Symptoms intermittent, but daily, worse at night I educated him about this condition I discussed operative and non-operative treatment options The patient would like to proceed with surgery The risks and benefits of operative treatment were discussed with the patient and the patient wishes to proceed with surgery. These risks include, but are not limited to risk of damage to blood vessels, nerves, tendons, infection, recurrence, incomplete relief of preoperative symptoms, persistent pain, possible need for further surgery and the risks associated with regional blocks and anesthesia. The plan is to take the patient to the operating room sometime on 01/25/24 for the following procedures: 1. Right carpal tunnel release, under local All of the preoperative paperwork including the consent was reviewed today. All the patient's questions were answered. He denies Diabetes, blood thinners, asthma, heart, lung, kidney issues 2. Left carpal tunnel syndrome, S/P release DOS: 08/20/23 Pre-operative symptoms intermittent, but daily, worse at night Now with normal sensation and good resolution of his nighttime symptoms Scribed for Ama Tatum MD by Arthur Sheldon, esthetician and manager medical spa, on 01/13/24 at 11:20 AM EST. Coding Level of Care Code Est Pt Level 4 (37842) Diagnoses Carpal tunnel syndrome, bilateral G56.03 Hemochromatosis E83.119
[2024-01-13 11:17] VITALS: BMI 30.7
== END 2024-01-13 11:34 | disposition home or self-care (01) ==
PROVIDERS: PCP Physician Assistant; Visit Provider Orthopaedic Surgery
DX: G56.03 Carpal tunnel syndrome, bilateral upper limbs (principal); E83.119 Hemochromatosis, unspecified
CPT/HCPCS: 99024

== ENCOUNTER → 2024-01-13 11:08 | Outpatient (BNVA) | payer OTHER, SELFPAY | PROVIDERS: PCP Physician Assistant; Visit Provider Orthopaedic Surgery ==

== ENCOUNTER 2024-01-25 09:05 | Day surgery (SDC) | payer OTHER, SELFPAY ==
[2024-01-25 09:44] VITALS: BMI 31.3
--- NOTE | 2024-01-25 11:32 | P.OP_ITS ---
Operative Note Operative Note Date of Service: 01/25/24 Narrative: Preop diagnosis: 1. Right Carpal tunnel syndrome Postop diagnosis: same Procedure: 1. Right Carpal tunnel release Surgeon: Ama Tatum MD Electrostatic Powder Coating Technician: None Anesthesia: local block using 1% lidocaine with epinephrine Findings: Thickened transverse carpal ligament. EBL: Less than 5 mL Specimens: None Complications: None Disposition: Brought to recovery room in stable condition Plan: Follow-up for 10-14 days for wound check and suture removal Indications: The patient is 58 years old, with right carpal tunnel syndrome that has been unresponsive to nonoperative management. The risks and benefits of operative treatment including but not limited to risk of damage to blood vessels, nerves, tendons, infection, persistent pain, persistent symptoms, or possible need for additional surgery were discussed with the patient and the patient wishes to proceed with surgery. Procedure: Once consent was obtained a local block was performed using a combination of 1% lidocaine with epinephrine. The patient was then brought back to the operating suite and placed on the operative table in supine position. The right upper extremity was prepped and draped in a standard surgical fashion. Once assured that we had a good block, a 2.0 cm longitudinal incision was made centered over the carpal tunnel. The incision was made through the skin to the subcutaneous tissues using a #15 blade. Dissection was made down to the level of the transverse carpal ligament with care being taken to protect the palmar cutaneous nerve. Once the transverse carpal ligament was clearly visualized, a longitudinal incision was made in the transverse carpal ligament 1st using a #15 blade, then using tenotomy scissors under direct visualization. Care was taken to look for and protect the motor branch of the median nerve when seen in this area. Once satisfied with our carpal tunnel release the wound was copiously irrigated with normal saline and hemostasis was obtained with a brief period of local pressure. The skin edges were reapproximated with some 5.0 nylon suture material and a sterile dressing was applied. The patient appears to have tolerated the procedure well and with no complica tions. All digits were well vascularized at the conclusion of the case.
--- NOTE | 2024-01-25 11:32 | MHC.SHP ---
Pre-Procedural Eval Section A - 24 Hr Update-Section A only Date of Service: 01/25/24 The patient is an INPATIENT: No Changes since office visit: No Cold of Flu in the past 2 weeks, No New Medical Problems, No Changes in Medication and No Patient answered all questions The patient has been examined within 24 hours of the surgical procedure. The History & Physical has been completed within 30 days and I have reviewed it.: Yes Section B - Complete if H&P > 30 days Chief Complaint: Carpal tunnel syndrome, right upper limb Allergies: Allergies Allergy/AdvReac Type Severity Reaction Status Date / Time No Known Allergies Allergy Verified 01/13/24 11:18 Plan Diagnosis/Plan: Unchanged I have reviewed the history and physical and performed a pertinent physical examination on my patient. No changes have occurred unless specified. Time Spent With Patient Time: Total time managing care of this patient today ____ minutes.
[2024-01-25 12:06] VITALS: BP 134/67; PULSE 74; O2SAT 96
== END 2024-01-25 12:07 | disposition home or self-care (01) ==
PROVIDERS: PCP Physician Assistant; Visit Provider Orthopaedic Surgery
PROC: (CPT 64721; principal; 2024-01-25 10:40)
DX: G56.01 Carpal tunnel syndrome, right upper limb (principal); R20.0 Anesthesia of skin; E83.119 Hemochromatosis, unspecified; I10 Essential (primary) hypertension; G47.33 Obstructive sleep apnea (adult) (pediatric); F32.A Depression, unspecified
CPT/HCPCS: 64721; J0171

== ENCOUNTER → 2024-01-25 09:05 | Outpatient (BNV) | payer OTHER, SELFPAY | PROVIDERS: PCP Physician Assistant; Visit Provider Orthopaedic Surgery | DX: G56.01 Carpal tunnel syndrome, right upper limb (principal) | CPT/HCPCS: 64721 ==

== ENCOUNTER 2024-02-02 10:19 | Outpatient (REF) | payer OTHER, SELFPAY | END 2024-02-02 10:20 | disposition home or self-care (01) | LOC: HO.BBR 10:19 | PROVIDERS: PCP Physician Assistant; Visit Provider Internal Medicine | DX: Z13.89 Encounter for screening for other disorder (principal) ==

== ENCOUNTER 2024-02-09 11:46 | Outpatient (AMB) | payer OTHER, SELFPAY ==
--- NOTE | 2024-02-09 12:37 | MHC.OFFVIS ---
Vital Signs 02/09/24 12:39 Height 5 ft 7.5 in Weight 204 lb BMI 31.5 Handedness Right Intake Visit Reasons: PO RT CTR 01/25/24 AR Intake Note: Thai is a 58 year old right hand dominant male who presents today post operatively s/p right Carpal Tunnel Release DOS: 01/25/2024 w/ Dr. Tatum. Patient denies numbness, tingling or locking on fingers. Patient also reports they are no longer taking anything for pain. Stitches removed in office and steri strips applied. Patient would like to discuss returning to work. Allergies No Known Allergies Allergy (Verified 02/09/24 12:40) HPI HPI PO RT CTR 01/25/24 AR: Details: Patient is a 58-year-old male who presents for postoperative evaluation from right carpal tunnel release, DOS 01/25/2024. Patient is doing very well postoperatively, and states that he has no more numbness or tingling in his right upper extremity. Patient states that the incision has stayed clean, dry, intact, and then he has no concerns for any sort of infection of the incision site. No other acute complaints or concerns at this time. [facility] Medical History Kidney stones Carpal tunnel syndrome, bilateral Pneumonia due to COVID-19 virus BPH (benign prostatic hyperplasia) Asthma LISSETH (obstructive sleep apnea) Hemochromatosis Hypertension Depression Surgical History History of colonoscopy History of nasal surgery Social History Patient Tobacco Use Status: Never used Tobacco Current occupation: rt [employer]/ [employer] Physical Exam Vital Signs: BMI result Body Mass Index 31.5 Extrem Other: Neuro: Normal sensation of the tips of all digits of the right hand No thenar or intrinsic wasting. Good APB muscle firing and good finger cross. Vascular: Capillary refill brisk. ROM: Patient can make a fist and extend all their digits. Skin: Well-healing incision site of the volar right wrist noted No evidence of infection General: No ecchymosis. No erythema or evidence of infection. Assessment & Plan Assessment & Plan (1) Right carpal tunnel syndrome: Code(s): G56.01 - Carpal tunnel syndrome, right upper limb Category: Medical Plan 1. 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 Patient is amenable to this Patient will follow-up as needed with any acute concerns Coding Level of Care Code Global (13236) Diagnoses Right carpal tunnel syndrome G56.01
[2024-02-09 12:39] VITALS: BMI 31.5
== END 2024-02-09 13:06 | disposition home or self-care (01) ==
PROVIDERS: PCP Physician Assistant
DX: G56.01 Carpal tunnel syndrome, right upper limb (principal)
CPT/HCPCS: 99024

== ENCOUNTER → 2024-02-09 11:46 | Outpatient (BNVA) | payer OTHER, SELFPAY | PROVIDERS: PCP Physician Assistant ==

== ENCOUNTER 2024-05-03 15:10 | Outpatient (REF) | payer OTHER, SELFPAY ==
--- OUTSIDE RECORDS SUMMARY | 2024-05-03 15:15 | XMS_ITS | Continuity of Care Document ---
Author Organization [facility] Address [address] [place] [address] Phone Care Team Providers Care Sports Nutritionist Name Role Phone Unavailable Unavailable Unavailable Allergies, Adverse Reactions, Alerts Substance Reaction Status Criticality No Known Allergies Active No Inform ation Medications Medication Instructions Dosage Effective Dates (start - stop) Status Comments prednisone 10 mg tablet take 1 tab po daily for 3 days - Active Lotrisone 1 %-0.05 % topical cream apply by topical route 2 times every day for 2 weeks to the affected and surrounding areas of skin in the morning and evening - No Longer Active atorvastatin 10 mg tablet take 0.5 tablet by oral route every bedtime 5 MG - No Longer Active Procedures Procedure Date OFFICE/OUTPATIENT VISIT, EST OFFICE/OUTPATIENT VISIT, EST OFFICE/OUTPATIENT VISIT, EST OFFICE/OUTPATIENT VISIT, NEW Advance Directives Directive Yes / No Effective Date File Name No Information Encounters Encounter Description Practice Location Reason(s) For Visit Diagnoses Date Provider Providers Copied on Encounter OFFICE/OUTPA TIENT VISIT, [facility], [address], [place], [place], [id number], [place] tel:[phone] [facility] itchy rash (chief complaint) RashTobacco abuse 201 7 No Information OFFICE/OUTPA TIENT VISIT, [facility], [address], [place], [place], [id number], tel:[phone] [facility] colonoscopy and brbpr (chief complaint) At risk for heart diseaseTobacc o abuseBRBPR (bright red blood per rectum)Testic ular swelling, right 7 No Information OFFICE/OUTPA TIENT VISIT, [facility], [address], [place], [place], [id number], [place] tel:[phone] [facility] cold symptoms (chief complaint) Viral URI 6 No Information OFFICE/OUTPA TIENT VISIT, [facility], [address], [place], [place], [id number], tel:[phone] [facility] well adult (chief complaint) Well adult examActinic keratosisRosa cea 6 No Information Family History Family Member Type Diagnosis Age At Onset Problem (finding) Family history of osteo porosis Problem (finding) Family history of diabetes mellitus type 2 Payers Payer name Insurance type Covered democrat ID Nemo resendiz(s) [facility] Medicaid [id number] Social History Type Description Quantity Date Captured Comments Alcohol Use Details No Caffeine Use Details coffee 2 cups per day Tobacco Use Status Occasional cigarette smoker Smoking Status Current some day smoker Smoking Tobacco Use Details Cigarette: No Details Available Cigarette: No Details Available Sex Male Vital Signs Date / Time: Height Weight BMI Pulse Rate Blood Pressure Temperature Respiratory Rate Body Surface Area Head Circumference Head Circ. Percentile Wt./[place]. Percentile BMI percentile Pulse Ox Inhaled Ox 8:05 AM 70.00 in 89.993 kg (198.40 lbs) 28.4 7 kg/m eter (2) 86 /min 122/86 mm[Hg] 96.10 F 14 /min 2.11 meter(2) 98 % Chief Complaint And Reason For Visit From encounter dated '11/07/2016 08:15'. itchy rash (chief complaint). Description: The symptoms began 1 week ago and generally lasts 1 Week. The symptoms are reported as being mild. The symptoms occur daily. The location is skin. He statesthe symptoms are acute and have worsened. 51 yo male with rashItchy rash x 1 week, worsening, started on inner arm, now two patches on inner legs and scrotum.No sex activity for years. Reason For Referral Reason For Referral No Information Plan Of Treatment Date Type Action Status Goal Tdap. Due on due Goal Depression screening. Due on due Goal Dental exam. Due on 017 due Goal Zoster vaccine (1st). Due on due Goal HIV Routine Screening. Due o n due Goal Td vaccine. Due on 17 due Goal Colonoscopy. Due on 017 due Goal Influenza vaccine. Due on due Goal Lipid panel. Due on 021 due Goal FOBT. Due on due Referral Ordered: Referrals: Gastroenterology ordered History Of Present Illness Encounter Date Complaint History Of Prese nt Illness itchy rash The symptoms beg an 1 week ago and generally lasts 1 Week. The symptoms are reported as being mild. The symptoms occur daily. The location is skin. He states the symptoms are acute and have worsened. 51 yo male with rashItchy rash x 1 week, worsening, started on inner arm, now two patches on inner legs and scrotum.No sex activity for years. colonoscopy and brbpr The sympto ms are reported as being moderate. The symptoms occur constantly. The location is anus. Aggravating factors include brbpr minimal. Relieving factors include tolerated. cold symptoms Onset: 2 days ag o. Severity: 4. The patient describes the cough as dry and hacking. It occurs persistently. The problem has not changed. Context: smoker. There are no aggravating factors. There are no relieving factors. Associated symptoms include cough, hoarseness, nasal congestion, rhinitis, rhinorrhea and sore throat. Pertinent negatives include chills, dyspnea, dyspnea on exertion, epistaxis, fatigue, fever, heartburn, hemoptysis, night sweats, pleuritic pain and post-nasal drainage. well adult The location is [place]. Aggravating factors include nothing. Relieving factors include coming to the doctor. here for help with overall health Functional Status Date Functional Assessmen t No Information Instructions Date Instruction Additional Infor ritu discussed possibilit y of psoriasis. topical lotrisone and small low dose prednisone for 3 days. rtc if worsens x 2 weeks. Related to Rash discussed. Related to Tobac co abuse discussed preventative care, lab s etc Related to Well adult exam Assessments Type Assessment Date assessment Rash assessment Tobacco abuse Patient Care Teams Name Effective Dates (start - stop) Status Members No Information
[2024-05-03 16:35] LABS: Iron 43 mcg/dL (45-160); Percent Iron Saturation 19 % (15-50); Total Iron Binding Capacity 222 mcg/dL (228-428); Unsaturated Iron Binding 179 ug/dL
[2024-05-03 16:56] LABS: Ferritin 9 ng/mL (20-250)
== END 2024-05-03 15:11 | disposition home or self-care (01) ==
LOC: HO.BBR 15:10
PROVIDERS: PCP Physician Assistant; Visit Provider Internal Medicine
DX: E83.110 Hereditary hemochromatosis (principal)
CPT/HCPCS: 36415; 82728; 83540

== ENCOUNTER 2024-08-01 15:23 | Outpatient (REF) | payer OTHER, SELFPAY | END 2024-08-01 15:24 | disposition home or self-care (01) | LOC: HO.BBR 15:23 | PROVIDERS: PCP Physician Assistant; Visit Provider Internal Medicine | DX: Z13.89 Encounter for screening for other disorder (principal) ==

== ENCOUNTER 2024-11-01 15:32 | Outpatient (REF) | payer OTHER, SELFPAY ==
--- OUTSIDE RECORDS SUMMARY | 2024-11-01 18:02 | XMS_ITS ---
Author Organization [facility] Address [address] [place] [address] Care Team Providers Care Automobile Body Repairer Helper Name Role Phone Yuli Andujar Primary Care Provider Kemal Salazar [phone] REASON FOR VISIT ? on labs Encounters Encounter Location Date Provider Diagnosis [facility] [address] [place] [address] 10/19/2023 Kemal Finn Plan Of Treatment Next Appt Details Provider Name:Kemal Finn , 09/13/2025 04:20:00 PM, [address], [address], [place], [address], Progress Notes * NEHEMIAH FUENTESDOB:1965 (58 yo M)Acc No.[id number]:10/19/2023 Patient:?NEHEMIAH FUENTES :1965???Age:58 Y???Sex:Male Address:[address] [place] [address] [place], [address] * true * Date:? Generated for Printi kt/Yung/eTransmitting on:?11/01/2024 06:02 PM EDT
== END 2024-11-01 15:33 | disposition home or self-care (01) ==
LOC: HO.BBR 15:32
PROVIDERS: PCP Physician Assistant; Visit Provider Internal Medicine
DX: Z13.89 Encounter for screening for other disorder (principal)

== ENCOUNTER 2025-02-01 08:20 | Outpatient (REF) | payer OTHER, SELFPAY ==
--- NOTE | ~2025-02-01 | US_ITS ---
EXAMINATION: US ABDOMEN COMPLETE WITH LIVER ELASTOGRAPHY HISTORY: HEREDITARY HEMOCHROMATOSIS TECHNIQUE: Real-time grayscale ultrasound imaging of the abdomen was performed and images were reviewed. COMPARISON: Comparison is made with the prior examination dated 09/23/2023. FINDINGS: Liver: The right lobe of the liver measures 15.6 cm in size. The left lobe of the liver measures 8.0 cm in size. The liver demonstrates increased echotexture, consistent with steatosis. There is focal fatty sparing adjacent to the gallbladder. No focal mass or intrahepatic biliary ductal dilatation is identified. There is normal hepatopedal flow in the portal vein. Ultrasound elastography of the liver was performed with 10 separate measurements of the liver parenchyma with the patient in the supine position. Measurements were obtained approximately 2 cm below Rosmery's capsule and perpendicular to the capsule. The median shear wave velocity is 1.46 m/s (previously 1.58 m/s). The interquartile range/median (IQR/median) is 0.16. Gallbladder and biliary tree: The gallbladder is unremarkable, without evidence of calculi, wall thickening, or pericholecystic fluid. There is no sonographic Johnson sign. The common bile duct is normal in caliber measuring 3 mm. Kidneys: The right kidney measures 11.6 cm in length. The left kidney measures 12.6 cm in length. The kidneys are unremarkable, without evidence of masses, hydronephrosis, or calculi. Pancreas: There is limited visualization of the pancreas. Spleen: The spleen is normal in size and contour, measuring 10.0 cm in length. Abdominal aorta and inferior vena cava: The visualized portions of the abdominal aorta and inferior vena cava are normal in caliber. There is no free fluid in the abdomen. US/US abdomen comp w elastography IMPRESSION: Hepatic steatosis. The median shear wave velocity in the liver is 1.58 m/s, corresponding to a median liver stiffness of 6.46 kPa. The IQR/median value is 0.16. This is indicative of a poor quality data set, and the estimated liver stiffness may be unreliable. Findings are indicative of a low elastography value which rules out advanced chronic liver disease in asymptomatic patients. REFERENCE: Society of [employer] in Ultrasound Liver Stiffness Thresholds (2020): LIVER STIFFNESS THRESHOLDS: *Shear wave velocity less than 1.3 m/s (Liver Stiffness equal or less than 5 kPa): High probability of being normal. *Shear wave velocity less than 1.7 m/s (Liver Stiffness less than 9 kPa): In the absence of other known clinical signs, rules out compensated advanced chronic liver disease. *Shear wave velocity between 1.7-2.1 m/s (Liver Stiffness 9-13 kPa): Suggestive of compensated advanced chronic liver disease but need further test for confirmation. *Shear wave velocity between 2.1-2.4 m/s (Liver Stiffness 13-17 kPa): Rules in compensated advanced chronic liver disease. *Shear wave velocity greater than 2.4 m/s (Liver Stiffness over 17 kPa): Suggestive of clinically significant portal hypertension. QUALITY OF DATA SET: *IQR/Median value equal or less than 0.15 implies a quality data set. *IQR/Median value over 0.15 implies a poor quality data set. SIGNIFICANT CHANGE FROM PRIOR EXAM: Significant change if liver stiffness measurement is 10% or greater from prior exam. OTHER CONSIDERATIONS: The stage of liver fibrosis may be overestimated in the setting of acute hepatitis, liver inflammation, elevated liver function tests, hepatic vascular congestion, obstructive cholestasis, non-fasting state, and infiltrative diseases such as amyloidosis and lymphoma. In some patients with NAFLD, the liver stiffness thresholds for compensated advanced chronic liver disease may be lower. In causes other than viral hepatitis and NAFLD, liver stiffness thresholds are not well established. Electronically signed by: Kemal Gr MD 02/01/2025 09:22 AM EDT
--- OUTSIDE RECORDS SUMMARY | 2025-02-01 09:14 | XMS_ITS | Patient Health Record ---
Author Organization [facility] Address [address] [place] [address] Care Team Providers Care Copy Center Operator Name Role Phone Yuli Andujar Primary Care Provider Kemal Salazar [phone] Allergies Allergen (clinical drug ingredient) Drug/Non Drug Allergy documented on EMR Reaction Allergy Type Onset Date Status no steroids orally (uncoded) Unknown Allergy Active Results Component Value Reference Range Notes Therapeutic Phlebotomy Reviewed date:02/03/2024 01:12:46 PM Interpretation: Performing Lab:[facility], [address] [place] [phone] Notes/Report: THER/HGB 13.1 14.0-18.0 g/dL THER/HCT TNP 42.0-52.0 % Therapeutic Phlebotomy Phlebotomy Performed 500 mls drawn on 02/02/24. Please note that a copy of this report has been sent to the Primary Care Physician, the ordering physician and any physician designated by patient request. IRON PROFILE Reviewed date:05/03/2024 05:00:12 PM Interpretation: Performing Lab:[facility], [address] [place] [phone] Notes/Report: Iron 43 45-160 mcg/dL Total Iron Binding Capacity 222 228-428 mcg/dL Percent Iron Saturation 19 15-50 % Unsaturated Iron Binding 179 Ferritin Reviewed date:05/13/2024 09:55:10 PM Interpretation: Performing Lab:[facility], [address] [place] [phone] Notes/Report: Ferritin 9 20-250 ng/mL Therapeutic Phlebotomy Reviewed date:05/04/2024 01:48:42 PM Interpretation: Performing Lab:[facility], [address] [place] [address] Notes/Report: THER/HGB 13.1 14.0-18.0 g/dL THER/HCT TNP 42.0-52.0 % Therapeutic Phlebotomy Phlebotomy Performed 500 mls drawn on 05/03/24. Please note that a copy of this report has been sent to the Primary Care Physician, the ordering physician and any physician designated by patient request. Therapeutic Phlebotomy (Not yet reviewed by provider) Interpretation: Performing Lab:[address] [address] Notes/Report: THER/HGB 11.0 14.0-18.0 g/dL THER/HCT TNP 42.0-52.0 % Therapeutic Phlebotomy TNP Reason: Pre-phlebotomy Hgb/Hct is below the established parameter for this patient. Please note that a copy of this report has been sent to the Primary Care Physician, the ordering physician and any physician designated by patient request. Therapeutic Phlebotomy Reviewed date:11/09/2024 06:01:38 PM Interpretation: Performing Lab:[facility], [address] [place] [phone] Notes/Report: THER/HGB 12.6 14.0-18.0 g/dL THER/HCT TNP 42.0-52.0 % Therapeutic Phlebotomy TNP Reason: Pre-phlebotomy Hgb/Hct is below the established parameter for this patient. Please note that a copy of this report has been sent to the Primary Care Physician, the ordering physician and any physician designated by patient request. Reason For Referral No Information Medications Medication SIG (Take, Route, Frequency, Duration) Notes Start Date End Date Status Tamsulosin HCl Activ e Lisinopril Active buPROPion HCl ER (SR) Active Wixela Inhub 100-50 MCG/DOSE INHALE 1 PUFF BY MOUTH TWICE DAILY Inhalation for 30 Active valACYclovir HCl Act elia Cyclobenzaprine HCl 5 MG TAKE 1 TABLET B Y MOUTH EVERY DAY AT BEDTIME FOR 7 DAYS Diagnosis Unavailable Oral for 7 Not-Takin g Probiotic Active Fluticasone Propionate Active Montelukast Sodium A ctive Albuterol Sulfate HFA 108 (90 Base) MCG/ACT INHALE 1 PUFF BY MOUTH FOUR TIMES DAILY NEEDED FOR SHORTNESS OF BREATH OR WHEEZING Inhalation for 30 Active Flonase Active Immunizations Vaccine Route Administration Date Status Comme nts Influenza Unknown 01/16/2019 Administered Influenza Unknown 04/17/2022 Administered Influenza Unknown 03/10/2023 Administered Influenza Unknown 02/02/2024 Administered Influenza Unknown 07/27/2020 Refused Social History Tobacco Use: Social History Observation Description Date Details (start date - stop date) Never Smoker NA - NA Tobacco Use/Smoking Question Answer Notes Patient is a nonsmoker Alcohol Screen Question Answer Notes Did you have a drink contain ing alcohol in the past year? Yes How often did you have a dri nk containing alcohol in the past year? 2 to 3 times a week (3 points) How many drinks did you have on a typical day when you were drinking in the past year? 1 or 2 drinks (0 point) How often did you have 6 or more drinks on one occasion in the past year? Never (0 point) Points 3 Interpretation Negative Section Notes: Nonsmoker; 1 drink a day Nonsmoker; 1 drink a day Nonsmoker; 1 drink a day Nonsmoker; occ. EtOH Nonsmoker; 1/2 to 1 shot per day and occasional beer Nonsmoker; 1/2 to 1 shot per day and occasional beer Problems Problem Type SNOMED Code ICD Code Onset Dates Problem Status W/U Status Risk Notes Problem 937662250 Colon cancer screening (Z12.11) Active confirmed Problem 178995857 History of adenomatous polyp of colon (Z86.010) Active confirmed Problem 52228522 Hereditary hemochromatosis (E83.110) Active confirmed Problem Diverticular disease of colon (865429241) Diverticulosis of large intestine without perforation or abscess without bleeding (K57.30) Active confirmed Problem 63944320 Fatigue, unspecified type (R53.83) Active confirmed Vital Signs Temperature 97.3 degrees Fahrenheit 09/14/2024 Blood pressure diastolic 01 mm Hg 09/14/2024 Height 67.5 in 09/14/2024 Blood pressure systolic 001 mm Hg 09/14/2024 Weight 200.2 lbs 09/14/2024 BMI 30.89 kg/m2 09/14/2024 Encounters Encounter Location Date Provider Diagnosis [facility] [address] [place] [address] 09/14/2024 Kemal Finn Hereditary hemochromatosis E83.110 ; History of adenomatous polyp of colon Z86.010 ; Colon cancer screening Z12.11 and Fatigue, unspecified type R53.83 [facility] [address] [place] [address] 11/02/2024 Kemal Finn Assessments Encounter Date Diagnosis (ICD Code) Assessment Notes Treatment Notes Treatment Clinical Notes Section Notes 09/14/2024 Hereditary hemochromatosis (ICD-10 - E83.110) Call us after your next phlebotomy and we will do a new order and spread them out at further intervals. Overall, Nehemiah appears well. He does not show any signs nor have any particular symptoms to suggest any progression of liver disease in relation to the underlying hereditary hemochromatosis. His workup 1 year ago was currently reassuring in regard to that given the good results of the ultrasound and laboratories. We did review all of his recent laboratories and at this point I advised him that we we will increase the interval of his phlebotomies to every 6 months for the time being. He will be due for another phlebotomy in October and does have an appointment for that at the blood bank. He will have them every 6 months thereafter and we will continue to follow his iron studies and hemoglobin. I advised him that we can always decrease the interval again if need be if we see the iron studies began to rise on the less frequent phlebotomy schedule. Of note, I did advise Nehemiah that he should have all of his children screened for the hereditary hemochromatosis at some point. I shall schedule Nehemiah for a follow-up abdominal ultrasound and the below laboratories in regard to the hereditary hemochromatosis's potential for progressive liver disease and increased risk of hepatoma. We did review that he will be due for another colonoscopy for screening in 2027 given the history of tubular adenomas and his last colonoscopy being back in 2022. If things remain well I will plan to see Nehemiah in 1 year for a follow-up office visit. I did advise him to certainly contact me prior to that if he has any problems or questions I can be of assistance with. Nehemiah was comfortable with this plan. Thank you again for allowing me to participate in Nehemiah's care. I shall continue to keep you advised of his progress. 09/14/2024 History of adenomatous polyp of colon (ICD-10 - Z86.010) Overall, Nehemiah appears well. He does not show any signs nor have any particular symptoms to suggest any progression of liver disease in relation to the underlying hereditary hemochromatosis. His workup 1 year ago was currently reassuring in regard to that given the good results of the ultrasound and laboratories. We did review all of his recent laboratories and at this point I advised him that we we will increase the interval of his phlebotomies to every 6 months for the time being. He will be due for another phlebotomy in October and does have an appointment for that at the blood bank. He will have them every 6 months thereafter and we will continue to follow his iron studies and hemoglobin. I advised him that we can always decrease the interval again if need be if we see the iron studies began to rise on the less frequent phlebotomy schedule. Of note, I did advise Nehemiah that he should have all of his children screened for the hereditary hemochromatosis at some point. I shall schedule Nehemiah for a follow-up abdominal ultrasound and the below laboratories in regard to the hereditary hemochromatosis's potential for progressive liver disease and increased risk of hepatoma. We did review that he will be due for another colonoscopy for screening in 2027 given the history of tubular adenomas and his last colonoscopy being back in 2022. If things remain well I will plan to see Nehemiah in 1 year for a follow-up office visit. I did advise him to certainly contact me prior to that if he has any problems or questions I can be of assistance with. Nehemiah was comfortable with this plan. Thank you again for allowing me to participate in Nehemiah's care. I shall continue to keep you advised of his progress. 09/14/2024 Colon cancer screening (ICD-10 - Z12.11) Repeat colonoscopy in 2027 Overall, Nehemiah appears well. He does not show any signs nor have any particular symptoms to suggest any progression of liver disease in relation to the underlying hereditary hemochromatosis. His workup 1 year ago was currently reassuring in regard to that given the good results of the ultrasound and laboratories. We did review all of his recent laboratories and at this point I advised him that we we will increase the interval of his phlebotomies to every 6 months for the time being. He will be due for another phlebotomy in October and does have an appointment for that at the blood bank. He will have them every 6 months thereafter and we will continue to follow his iron studies and hemoglobin. I advised him that we can always decrease the interval again if need be if we see the iron studies began to rise on the less frequent phlebotomy schedule. Of note, I did advise Nehemiah that he should have all of his children screened for the hereditary hemochromatosis at some point. I shall schedule Nehemiah for a follow-up abdominal ultrasound and the below laboratories in regard to the hereditary hemochromatosis's potential for progressive liver disease and increased risk of hepatoma. We did review that he will be due for another colonoscopy for screening in 2027 given the history of tubular adenomas and his last colonoscopy being back in 2022. If things remain well I will plan to see Nehemiah in 1 year for a follow-up office visit. I did advise him to certainly contact me prior to that if he has any problems or questions I can be of assistance with. Nehemiah was comfortable with this plan. Thank you again for allowing me to participate in Nehemiah's care. I shall continue to keep you advised of his progress. 09/14/2024 Fatigue, unspecified type (ICD-10 - R53.83) Overall, Nehemiah appears well. He does not show any signs nor have any particular symptoms to suggest any progression of liver disease in relation to the underlying hereditary hemochromatosis. His workup 1 year ago was currently reassuring in regard to that given the good results of the ultrasound and laboratories. We did review all of his recent laboratories and at this point I advised him that we we will increase the interval of his phlebotomies to every 6 months for the time being. He will be due for another phlebotomy in October and does have an appointment for that at the blood bank. He will have them every 6 months thereafter and we will continue to follow his iron studies and hemoglobin. I advised him that we can always decrease the interval again if need be if we see the iron studies began to rise on the less frequent phlebotomy schedule. Of note, I did advise Nehemiah that he should have all of his children screened for the hereditary hemochromatosis at some point. I shall schedule Nehemiah for a follow-up abdominal ultrasound and the below laboratories in regard to the hereditary hemochromatosis's potential for progressive liver disease and increased risk of hepatoma. We did review that he will be due for another colonoscopy for screening in 2027 given the history of tubular adenomas and his last colonoscopy being back in 2022. If things remain well I will plan to see Nehemiah in 1 year for a follow-up office visit. I did advise him to certainly contact me prior to that if he has any problems or questions I can be of assistance with. Nehemiah was comfortable with this plan. Thank you again for allowing me to participate in Nehemiah's care. I shall continue to keep you advised of his progress. Plan Of Treatment Pending Test Test Name Order Date LIVER PROFILE 09/09/2023 LIVER PROFILE 03/08/2021 LIVER PROFILE 07/01/2022 LIVER PROFILE 09/14/2024 TSH (THYROID STIMULATING HORMONE) 2022 TSH (THYROID STIMULATING HORMONE) 2024 IRON + IBC (FE) 07/01/2022 IRON + IBC (FE) 09/09/2023 CBC w DIFF 09/14/2024 CBC w DIFF 07/01/2022 CBC w DIFF 09/09/2023 ALPHA-FETOPROTEIN,TUMOR MARKER 5 ALPHA-FETOPROTEIN,TUMOR MARKER 3 ALPHA-FETOPROTEIN,TUMOR MARKER 4 US ABD 03/08/2021 US ABDOMEN COMP WITH ELASTOGRAPHY 2022 Prothrombin Time INR 09/09/2023 Prothrombin Time INR 09/14/2024 Ferritin 09/09/2023 T4 Thyroxine 09/14/2024 Liver Fibrosis Pnl 09/14/2024 Liver Fibrosis Pnl 09/09/2023 US abdomen comp w elastography 5 US abdomen comp w elastography 4 Therapeutic Phlebotomy 08/01/2024 Future Test Test Name Order Date COLONOSCOPY 07/01/2022 Next Appt Details Provider Name:Kemal Finn , 09/13/2025 04:20:00 PM, [address], [place], [address], Insurance Providers Payer Name Payer Address Payer Phone Subscriber Number Group Number Insured Name Patient Relationship to Insured Coverage Start Date Coverage End Date [facility] [address] [place] [phone] [id number] NEHEMIAH FUENTES Self - patient is the insured Medical (General) History Medical History History ICD Code Kidney stones Denies CO,DM,CVA,renal disease Hemochromatosis--diagnosed b y Dr. Benitez in approx 2015--he reports that he had a liver biopsy at [facility]--treated with phlebotomies. 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 Sleep apnea- Bipap machine Hypertension Colonoscopy 02/2018 with a c ecal adenoma removed-Dr. Benitez; he thinks he may have had a colonoscopy before that but isn't sure Asthma Depression BPH COVID with a pneumonia in 05/2020 Carpal tunnel bilaterally Colonoscopy in August 2022 with removal o f only hyperplastic polyps He was having phlebotomies e very 3 months through April 2024 in regard to his hemochromatosis. However, in July 2024 he had a hemoglobin of only 11 and therefore the phlebotomy was held. His iron was 43, iron saturation 19%, and ferritin of only 9 in April 2024. His phlebotomy interval was increased to 6 months in the spring. Surgical History Surgery Date(Month/Year) Carpal tunnel surgery left, right 08/2023 Nose 1979
== END 2025-02-01 08:21 | disposition home or self-care (01) ==
LOC: HO.US 08:20
PROVIDERS: PCP Family Medicine; Visit Provider Internal Medicine
DX: E83.110 Hereditary hemochromatosis (principal)
CPT/HCPCS: 76700; 76981

== ENCOUNTER → 2025-02-01 08:22 | Outpatient (BNV) | payer OTHER, SELFPAY | PROVIDERS: PCP Family Medicine; Visit Provider Radiology Diagnostic Radiology | DX: K76.0 Fatty (change of) liver, not elsewhere classified (principal) | CPT/HCPCS: 76700 ==